=== PATIENT | male | born 1980 | race Caucasian/White ===

== ENCOUNTER 2019-05-28 20:19 | Emergency (ER) | payer OTHER ==
[2019-05-28 20:24] VITALS: BP 143/96; PULSE 82; RESP 18; TEMP 98.9
[2019-05-28] MEDS ORDERED: SODIUM CHLORIDE 0.9% 1,000 ML IV STA (20:26)
[2019-05-28] MEDS ORDERED: ONDANSETRON 4 MG/2 ML VIAL IVP STA (20:26)
--- NOTE | 2019-05-28 20:28 | ED ---
Abdominal Pain HPI - General Chief Complaint: Abdominal Pain Stated Complaint: Abd pain Time Seen by Provider: 05/28/19 20:26 Source: patient, RN notes reviewed, old records reviewed Mode of arrival: ambulatory Limitations: no limitations - History of Present Illness Initial Comments: This is a 39-year-old male the ER for evaluation. Patient resents today for evaluation regarding abdominal pain. Right upper quadrant bowel pain worse after eating. No history of similar, no surgical history. Patient denies again any trauma mild nausea no vomiting no diarrhea. Again no fever MD Complaint: abdominal pain -: hour(s) Location: RUQ Radiation: RUQ Migration to: RUQ Severity: mild Severity scale (1-10): 2 Quality: aching Improves With: nothing Worsens With: eating Associated Symptoms: nausea - Related Data Allergies Allergy/AdvReac Type Severity Reaction Status Date / Time ibuprofen Allergy Unknown Verified 05/28/19 20:24 ketorolac [From Toradol] Allergy Unknown Verified 05/28/19 20:24 Penicillins Allergy Unknown Verified 05/28/19 20:24 Review of Systems ROS Statement: Those systems with pertinent positive or pertinent negative responses have been documented in the HPI. ROS Other: All systems not noted in ROS Statement are negative. Past Medical History Past Medical History: No Reported History History of Any Multi-Drug Resistant Organisms: None Reported Past Surgical History: Hernia Repair Past Psychological History: Bipolar, Schizophrenia Smoking Status: Current every day smoker Past Alcohol Use History: None Reported Past Drug Use History: Cocaine, Heroin, Marijuana, Methamphetamine General Exam - General Exam Comments Initial Comments: RUQ tenderness negative Mensah's Limitations: no limitations General appearance: alert, in no apparent distress Head exam: Present: atraumatic, normocephalic, normal inspection Eye exam: Present: normal appearance, PERRL, EOMI. Absent: scleral icterus, conjunctival injection, periorbital swelling ENT exam: Present: normal exam, mucous membranes moist Neck exam: Present: normal inspection. Absent: tenderness, meningismus, lymphadenopathy Respiratory exam: Present: normal lung sounds bilaterally. Absent: respiratory distress, wheezes, rales, rhonchi, stridor Cardiovascular Exam: Present: regular rate, normal rhythm, normal heart sounds. Absent: systolic murmur, diastolic murmur, rubs, gallop, clicks GI/Abdominal exam: Present: soft, normal bowel sounds. Absent: distended, tenderness, guarding, rebound, rigid Extremities exam: Present: normal inspection, full ROM, normal capillary refill. Absent: tenderness, pedal edema, joint swelling, calf tenderness Back exam: Present: normal inspection Neurological exam: Present: alert, oriented X3, CN II-XII intact Psychiatric exam: Present: normal affect, normal mood Skin exam: Present: warm, dry, intact, normal color. Absent: rash Course Vital Signs 05/28/19 20:22 Temperature 98.9 F Pulse Rate 82 Respiratory 18 Rate Blood Pressure 143/96 O2 Sat by Pulse 98 Oximetry - Reevaluation(s) Reevaluation #1: 05/28/19 21:51 Medical record is reviewed Reevaluation #2: 05/28/19 21:51 Pain control Medical Decision Making - Medical Decision Making 39 male the ER for evaluation right upper quadrant abdominal pain ultrasound negative labwork is normal. Patient can be discharged home - Lab Data Result diagrams: 05/28/19 20:48 05/28/19 20:48 Lab Results 05/28/19 05/28/19 05/28/19 Range/Units 20:48 20:48 20:48 WBC 5.2 (3.8-10.6) k/uL RBC 4.45 (4.30-5.90) m/uL Hgb 13.6 (13.0-17.5) gm/dL Hct 40.1 (39.0-53.0) % MCV 90.2 (80.0-100.0) fL MCH 30.5 (25.0-35.0) pg MCHC 33.8 (31.0-37.0) g/dL RDW 12.8 (11.5-15.5) % Plt Count 205 (150-450) k/uL Neutrophils % 57 % Lymphocytes % 28 % Monocytes % 6 % Eosinophils % 6 % Basophils % 1 % Neutrophils # 3.0 (1.3-7.7) k/uL Lymphocytes # 1.5 (1.0-4.8) k/uL Monocytes # 0.3 (0-1.0) k/uL Eosinophils # 0.3 (0-0.7) k/uL Basophils # 0.0 (0-0.2) k/uL PT (9.0-12.0) sec INR (<1.2) APTT (22.0-30.0) sec Sodium 137 (137-145) mmol/L Potassium 4.5 (3.5-5.1) mmol/L Chloride 102 (98-107) mmol/L Carbon Dioxide 28 (22-30) mmol/L Anion Gap 7 mmol/L BUN 18 (9-20) mg/dL Creatinine 0.84 (0.66-1.25) mg/dL Est GFR (CKD-EPI)AfAm >90 (>60 ml/min/1.73 sqM) Est GFR (CKD-EPI)NonAf >90 (>60 ml/min/1.73 sqM) Glucose 101 H (74-99) mg/dL Plasma Lactic Acid Hong 1.1 (0.7-2.0) mmol/L Calcium 9.2 (8.4-10.2) mg/dL Total Bilirubin 0.3 (0.2-1.3) mg/dL AST 61 H (17-59) U/L ALT 63 (21-72) U/L Alkaline Phosphatase 76 (38-126) U/L Creatine Kinase 211 H (55-170) U/L Total Protein 6.4 (6.3-8.2) g/dL Albumin 3.9 (3.5-5.0) g/dL Amylase 48 (30-110) U/L Lipase 81 (23-300) U/L 05/28/19 Range/Units 20:48 WBC (3.8-10.6) k/uL RBC (4.30-5.90) m/uL Hgb (13.0-17.5) gm/dL Hct (39.0-53.0) % MCV (80.0-100.0) fL MCH (25.0-35.0) pg MCHC (31.0-37.0) g/dL RDW (11.5-15.5) % Plt Count (150-450) k/uL Neutrophils % % Lymphocytes % % Monocytes % % Eosinophils % % Basophils % % Neutrophils # (1.3-7.7) k/uL Lymphocytes # (1.0-4.8) k/uL Monocytes # (0-1.0) k/uL Eosinophils # (0-0.7) k/uL Basophils # (0-0.2) k/uL PT 9.6 (9.0-12.0) sec INR 0.9 (<1.2) APTT 23.3 (22.0-30.0) sec Sodium (137-145) mmol/L Potassium (3.5-5.1) mmol/L Chloride (98-107) mmol/L Carbon Dioxide (22-30) mmol/L Anion Gap mmol/L BUN (9-20) mg/dL Creatinine (0.66-1.25) mg/dL Est GFR (CKD-EPI)AfAm (>60 ml/min/1.73 sqM) Est GFR (CKD-EPI)NonAf (>60 ml/min/1.73 sqM) Glucose (74-99) mg/dL Plasma Lactic Acid Hong (0.7-2.0) mmol/L Calcium (8.4-10.2) mg/dL Total Bilirubin (0.2-1.3) mg/dL AST (17-59) U/L ALT (21-72) U/L Alkaline Phosphatase (38-126) U/L Creatine Kinase (55-170) U/L Total Protein (6.3-8.2) g/dL Albumin (3.5-5.0) g/dL Amylase (30-110) U/L Lipase (23-300) U/L - Radiology Data Radiology results: report reviewed (Ultrasound right upper quadrant negative for gallbladder disease), image reviewed Disposition Clinical Impression: Abdominal pain Disposition: HOME SELF-CARE Condition: Good Instructions (If sedation given, give patient instructions): Abdominal Pain (ED) Is patient prescribed a controlled substance at d/c from ED?: No Referrals: Nonstaff,Physician [Primary Care Provider] - 1-2 days
[2019-05-28 20:58] LABS: Basophils % (A) 1 %; Eosinophils # (A) 0.3 k/uL (0-0.7); Eosinophils % (A) 6 %; HCT 40.1 % (39.0-53.0); HGB 13.6 gm/dL (13.0-17.5); Lymphocytes # (A) 1.5 k/uL (1.0-4.8); Lymphocytes % (A) 28 %; MCH 30.5 pg (25.0-35.0); MCHC 33.8 g/dL (31.0-37.0); MCV 90.2 fL (80.0-100.0); Mean Platelet Volume 6.6; Monocytes # (A) 0.3 k/uL (0-1.0); Monocytes % (A) 6 %; Neutrophils % (A) 57 %; Platelet Count 205 k/uL (150-450); RBC 4.45 m/uL (4.30-5.90); RDW 12.8 % (11.5-15.5); WBC 5.2 k/uL (3.8-10.6)
[2019-05-28 21:07] LABS: ALT 63 U/L (21-72); AST 61 U/L (17-59); African American GFR (CKD) >90 (>60 ml/min/1.73 sqM); Albumin 3.9 g/dL (3.5-5.0); Alkaline Phosphatase 76 U/L (38-126); Amylase 48 U/L (30-110); Anion Gap 7 mmol/L; Blood Urea Nitrogen 18 mg/dL (9-20); Calcium 9.2 mg/dL (8.4-10.2); Carbon Dioxide 28 mmol/L (22-30); Chloride 102 mmol/L (98-107); Creatine Kinase 211 U/L (55-170); Glucose 101 mg/dL (74-99); INR 0.9 (<1.2); Lipase 81 U/L (23-300); Partial Thromboplastin Time 23.3 sec (22.0-30.0); Potassium 4.5 mmol/L (3.5-5.1); Prothrombin Time 9.6 sec (9.0-12.0); Sodium 137 mmol/L (137-145); Total Bilirubin 0.3 mg/dL (0.2-1.3); Total Protein 6.4 g/dL (6.3-8.2)
--- NOTE | 2019-05-28 21:37 | US ---
EXAMINATION TYPE: US gallbladder DATE OF EXAM: 05/28/2019 COMPARISON: NONE CLINICAL HISTORY: Pain. Pt states RUQ pain, pt is not NPO EXAM MEASUREMENTS: Liver Length: 15.1 cm Gallbladder Wall: 0.4 cm CBD: 0.5 cm Right Kidney: 10.8 x 4.3 x 4.9 cm Pt very gassy, not NPO, somewhat limited exam Pancreas: Obscured by bowel gas Liver: Visualized portions appeared wnl Gallbladder: Appeared contracted, wall thickened, pt not NPO Evidence for sonographic Mensah's sign: Yes CBD: wnl Right Kidney: wnl, lower pole gassed out IMPRESSION: Negative exam. Contracted gallbladder. No dilated ducts.
[2019-05-28] MEDS ORDERED: PANTOPRAZOLE 40 MG/10 ML VIAL IVP STA (21:49)
[2019-05-28] MEDS ORDERED: MAG HYDROX/AL HYDROX/SIMETH 30 ML, HYOSCYAMINE ELIXIR 10 ML, CIMETIDINE HCL 300 MG PO STA ×3 (21:49)
== END 2019-05-28 22:12 | disposition home or self-care (01) ==
LOC: EC 20:19
DX: R10.11 Right upper quadrant pain (principal); R11.0 Nausea; F17.200 Nicotine dependence, unspecified, uncomplicated; Z88.0 Allergy status to penicillin; Z88.6 Allergy status to analgesic agent
CPT/HCPCS: 36415; 80053; 82150; 82550; 83605; 83690; 85025; 85610; 85730; 76705; 99284; 96374; 96375; 96361; J2405; C9113

== ENCOUNTER 2019-06-05 19:44 | Observation (INO) | payer MEDICARE, OTHER ==
--- NOTE | 2019-06-05 20:40 | ED ---
Chest Pain HPI - General Chief Complaint: Chest Pain Stated Complaint: Chest Pain Time Seen by Provider: 06/05/19 20:19 Source: patient Mode of arrival: ambulatory Limitations: no limitations - History of Present Illness Initial Comments: The patient is a 39-year-old male who presents to the emergency department with reported chest pain. Patient symptoms have been going on for the past 2 days. Reports that he will have episodes of sharp shooting chest pain is located substernally without radiation. Pain will last for approximately 10 seconds and then spontaneously resolve. He has not been taking any medications for his symptoms. States that today he had such severe pain that he ended up having a syncopal episode. Reports that he was standing when the incident happened. He is unsure if he hit his head. It was reported the patient was only unconscious for 20 seconds. There is no post ictal phase or she like activity. There is no bowel or bladder incontinence patient did not bite his tongue. EMS was called. The incident happened at [place] were the patient is residing for alcohol abuse. He has been there for approximately 3 weeks. The last he used alcohol was 3 weeks ago. Does report a history of cocaine use, last of which was 2-3 months ago. He also reports methamphetamine and heroin use last was greater than 6 months ago. The patient does have a history of PE 5 years ago. Reports that he was on several to for 6 months and then taken off by his physician. The patient has noted bilateral lower extremity edema. Denies any calf pain or swelling. No history of blood clotting disorders. Denies recent surgeries or hemoptysis. No previous history of cardiac disease. States he has never had a full cardiac workup. No cough, fevers or chills. Denies nausea vomiting or diaphoresis. Denies any headache, neck pain, visual changes, back pain or pain in his extremities secondary to syncopal episode. There are no other alleviating, precipitating or modifying factors - Related Data Home Medications Medication Instructions Recorded Confirmed Acetaminophen [Tylenol] 650 mg PO Q4H PRN 06/05/19 06/05/19 Citalopram Hydrobromide [CeleXA] 20 mg PO DAILY 06/05/19 06/05/19 Docusate [Colace] 100 mg PO BID 06/05/19 06/05/19 Mirtazapine [Remeron] 15 mg PO HS 06/05/19 06/05/19 Multivitamins, Thera [Multivitamin 1 tab PO DAILY 06/05/19 06/05/19 (formulary)] QUEtiapine FUMARATE [SEROquel] 300 mg PO HS 06/05/19 06/05/19 busPIRone HCl [Buspar] 10 mg PO BID 06/05/19 06/05/19 cloNIDine HCL [Catapres] 0.1 - 0.3 mg PO DAILY PRN 06/05/19 06/05/19 Allergies Allergy/AdvReac Type Severity Reaction Status Date / Time aspirin Allergy Intermediate Itching Verified 06/05/19 21:02 ibuprofen Allergy Unknown Verified 06/05/19 20:50 ketorolac [From Toradol] Allergy Unknown Verified 06/05/19 20:50 Penicillins Allergy Unknown Verified 06/05/19 20:50 Review of Systems ROS Statement: Those systems with pertinent positive or pertinent negative responses have been documented in the HPI. ROS Other: All systems not noted in ROS Statement are negative. EKG Findings - EKG Comments: EKG Findings:: EKG demonstrates a normal sinus rhythm with a ventricular rate of 73. NJ interval 150. QRS 94. QTc 471. There are no acute ST segment elevations or depressions concerning for ischemic changes. Past Medical History Past Medical History: No Reported History History of Any Multi-Drug Resistant Organisms: None Reported Past Surgical History: Hernia Repair Past Psychological History: Bipolar, Schizophrenia Smoking Status: Current every day smoker Past Alcohol Use History: None Reported Past Drug Use History: Cocaine, Heroin, Marijuana, Methamphetamine - Past Family History Mother Family Medical History: Diabetes Mellitus, Myocardial Infarction ([place]) Additional Family Medical History / Comment(s): at age of 66 Father History Unknown: Yes General Exam Limitations: no limitations General appearance: alert, in no apparent distress Head exam: Present: atraumatic, normocephalic, normal inspection Eye exam: Present: normal appearance, PERRL, EOMI. Absent: scleral icterus, conjunctival injection, periorbital swelling ENT exam: Present: normal exam, mucous membranes moist Neck exam: Present: normal inspection. Absent: tenderness, meningismus, lymphadenopathy Respiratory exam: Present: normal lung sounds bilaterally. Absent: respiratory distress, wheezes, rales, rhonchi, stridor Cardiovascular Exam: Present: regular rate, normal rhythm, normal heart sounds. Absent: systolic murmur, diastolic murmur, rubs, gallop, clicks GI/Abdominal exam: Present: soft, normal bowel sounds. Absent: distended, tenderness, guarding, rebound, rigid Extremities exam: Present: normal inspection, full ROM, normal capillary refill. Absent: tenderness, pedal edema, joint swelling, calf tenderness Back exam: Present: normal inspection Neurological exam: Present: alert, oriented X3, CN II-XII intact Psychiatric exam: Present: normal affect, normal mood Skin exam: Present: warm, dry, intact, normal color. Absent: rash Course Vital Signs 06/05/19 06/05/19 06/05/19 19:50 20:29 21:21 Temperature 98.5 F Pulse Rate 98 69 75 Pulse Rate [ Right] Respiratory 16 18 18 Rate Blood Pressure 133/76 130/45 124/83 Blood Pressure [Right Arm] O2 Sat by Pulse 95 99 96 Oximetry 06/05/19 06/06/19 23:28 00:00 Temperature 97.8 F 98.5 F Pulse Rate 62 Pulse Rate [ 74 Right] Respiratory 16 15 Rate Blood Pressure 151/95 Blood Pressure 108/74 [Right Arm] O2 Sat by Pulse 98 97 Oximetry Chest Pain MDM - MDM The patient was seen by myself. Upon arrival he is placed into room 4. He sick to continuous pulse ox and cardiac monitoring. A 12-lead EKG is performed and the patient which demonstrates no acute findings. I did recommend laboratory studies, bilateral lower extremity Dopplers due to swelling and a CT a of his chest due to his history of PE. The patient agreed to this. He is currently symptom-free at this time. Upon return results are discussed with the patient. I did recommend hospital admission due to his syncopal episode as well as recurrent chest pain. Patient did agree to this. He was admitted to Dr. Laws. I did order an echo place patient on telemetry monitoring. The patient remained in stable condition without any episodes of chest pain while within the emergency department and was transported to the floor. Disposition Clinical Impression: Acute chest pain, Syncope Disposition: ADMITTED IP TO THIS [facility] Condition: Stable Is patient prescribed a controlled substance at d/c from ED?: No Decision to Admit Reason: Admit from EC Decision Date: 06/05/19 Decision Time: 22:51
[2019-06-05] MEDS ORDERED: ASPIRIN 81 MG PO STA (20:48)
[2019-06-05 21:07] LABS: Basophils % (A) 1 %; Eosinophils # (A) 0.2 k/uL (0-0.7); Eosinophils % (A) 5 %; HCT 37.4 % (39.0-53.0); Lymphocytes # (A) 1.3 k/uL (1.0-4.8); Lymphocytes % (A) 28 %; MCH 30.4 pg (25.0-35.0); MCHC 34.8 g/dL (31.0-37.0); MCV 87.4 fL (80.0-100.0); Mean Platelet Volume 7.2; Monocytes # (A) 0.3 k/uL (0-1.0); Monocytes % (A) 6 %; Neutrophils # (A) 2.6 k/uL (1.3-7.7); Neutrophils % (A) 56 %; Platelet Count 222 k/uL (150-450); RBC 4.28 m/uL (4.30-5.90); RDW 13.1 % (11.5-15.5); WBC 4.7 k/uL (3.8-10.6)
[2019-06-05 21:10] LABS: ALT 36 U/L (21-72); AST 39 U/L (17-59); African American GFR (CKD) >90 (>60 ml/min/1.73 sqM); Albumin 3.7 g/dL (3.5-5.0); Alkaline Phosphatase 66 U/L (38-126); Anion Gap 5 mmol/L; Blood Urea Nitrogen 18 mg/dL (9-20); Carbon Dioxide 30 mmol/L (22-30); Chloride 103 mmol/L (98-107); Glucose 87 mg/dL (74-99); Magnesium 1.9 mg/dL (1.6-2.3); Potassium 4.5 mmol/L (3.5-5.1); Sodium 138 mmol/L (137-145); Total Bilirubin 0.4 mg/dL (0.2-1.3); Total Protein 6.2 g/dL (6.3-8.2)
[2019-06-05 21:18] LABS: D-Dimer 0.35 mg/L FEU (<0.60); INR 0.9 (<1.2); Prothrombin Time 9.9 sec (9.0-12.0)
[2019-06-05] MEDS: RX INFO: IV CONTRAST WAS GIVEN 1 EACH MISC MISCELLANE PRN ×2 (21:20→21:21)
--- NOTE | 2019-06-05 21:35 | CT ---
EXAMINATION TYPE: CT chest angio for PE DATE OF EXAM: 06/05/2019 COMPARISON: None HISTORY: sob CT DLP: 410 mGycm Automated exposure control for dose reduction was used. CONTRAST: CT Chest for pulmonary embolism performed with with IV Contrast, patient injected with 80 mL of Isovu e 370. FINDINGS: There are 3-D post processed images. There is minimal pleural thickening in the posterior lung cruz. There is minimal atelectasis at the posterior lung bases. There is no pleural effusion. There is no evidence of a pulmonary mass. There is no pericardial effusion. There are a few anterior mediastinal lymph nodes that measure less than 1 cm. There are a few bronchial lymph nodes that measure up to 1 cm. There is no mediastinal adenopathy. There are no hilar masses. There is normal contrast opacification of the pulmonary arteries. There is some spurring in the thoracic spine. I see no bony destructive p rocess. IMPRESSION: No evidence of pulmonary embolism. Minimal pleural thickening at the posterior lung bases. Nonspecifi c mediastinal and bronchial lymph nodes.
--- NOTE | 2019-06-05 22:34 | US ---
EXAM: US Duplex Bilateral Lower Extremity Veins CLINICAL HISTORY: ITS.REASON US Reason: Pain TECHNIQUE: Real-time duplex ultrasound scan of the bilateral lower extremity veins integrating B-mode two-dimensional vascular structure, Doppler spectral analysis, color flow Doppler imaging and compression. COMPARISON: None FINDINGS: Right deep veins: Unremarkable. No DVT in the right common femoral, femoral, proximal deep femoral or popliteal veins. The veins demonstrate normal color flow, are normally compressible, with normal phasic flow and/or augmentation response. Right superficial veins: Unremarkable. No thrombus in the visualized right great saphenous vein. Left deep veins: Unremarkable. No DVT in the left common femoral, femoral, proximal deep femoral or popliteal veins. The veins demonstrate normal color flow, are normally compressible, with normal phasic flow and/or augmentation response. Left superficial veins: Unremarkable. No thrombus in the visualized left great saphenous vein. Soft tissues: No acute findings. No popliteal cyst. Lymph nodes: Nonspecific mildly prominent left inguinal lymph nodes. IMPRESSION: No deep venous thrombosis identified in either lower extremity.
[2019-06-05] MEDS ORDERED: NALOXONE 0.4 MG/ML 1 ML VIAL IV PRN (22:52)
[2019-06-05] MEDS ORDERED: ACETAMINOPHEN TAB 325 MG TAB PO PRN (23:03)
[2019-06-06 00:49] VITALS: BMI 31.5
[2019-06-06 06:56] VITALS: BP 106/66; PULSE 64; RESP 18; TEMP 97.6
[2019-06-06 08:23] LABS: Cholesterol 221 mg/dL (<200); HDL Cholesterol 42 mg/dL (40-60); LDL Cholesterol,Calculated 119 mg/dL (0-99); Triglycerides 298 mg/dL (<150)
[2019-06-06] MEDS ORDERED: busPIRone HCl 10 MG TAB PO SCH (09:00)
[2019-06-06] MEDS ORDERED: DOCUSATE 100 MG CAP PO SCH (09:00)
[2019-06-06] MEDS ORDERED: CITALOPRAM HYDROBROMIDE 20 MG TAB PO SCH (09:00)
--- NOTE | 2019-06-06 10:05 | P.CRDCN ---
History of Present Illness History of present illness: This is a pleasant 39-year-old male past medical history significant for cocaine, methamphetamine and heroin use currently attending drug rehabilitation. He also has a history of bipolar, schizophrenia, alcohol use and chronic nicotine dependence. 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 We have asked to see him in consultation secondary to chest discomfort. He states for the previous 3-4 days intermittently he has felt a heavy pressure sensation in the midsternal region. It comes on it last for about a minute and subsides on its own. There is no radiation to the arm, back, neck or jaw. It is associated with mild shortness of breath and diaphoresis. No specific aggravating or alleviating factors. However he does state he feels that he's been under a significant amount of stress and anxiety since being in rehab and attempt, drugs. EKG reveals sinus mechanism with no acute ST or T wave abnormalities noted. CTA chest negative for pulmonary embolism. Bilateral lower extremity duplex negative for DVT bilaterally. Laboratory data reviewed, WBC 4.7, hemoglobin 13, platelets 222, d-dimer 0.35, sodium 138, potassium 4.5, creatinine 0.79, magnesium 1.9, cardiac enzymes negative 3, NT proBNP 101, LDL 119. He currently takes no daily cardiac medications. At the time of my exam: CONSTITUTIONAL: Denies fever. Denies chills. EYES: Denies blurred vision. Denies vision changes. Denies eye pain. EARS, NOSE, MOUTH & THROAT: Denies headache. Denies sore throat. Denies ear pain. CARDIOVASCULAR: Denies chest pain. Denies shortness of breath. Denies orthopnea. Denies PND. Denies palpitations. RESPIRATORY: Denies cough. GASTROINTESTINAL: Denies abdominal pain. Denies diarrhea. Denies constipation. Denies nausea. Denies vomiting. MUSCULOSKELETAL: Denies myalgias. INTEGUMENTARY: Denies pruitis. Denies rash. NEUROLOGIC: Denies numbness. Denies tingling. Denies weakness. PSYCHIATRIC: Complains of claustrophobia and anxiety. Denies depression. ENDOCRINE: Denies fatigue. Denies weight change. Denies polydipsia. Denies polyurina. GENITOURINARY: Denies burning, hematuria or urgency with micturation. HEMATOLOGIC: Denies history of anemia. Denies bleeding. Blood pressure 106/66 heart rate 64 afebrile maintaining oxygen saturation on room air GENERAL: This is a 39-year-old male in no apparent distress at the time of my examination. HEENT: Head is atraumatic, normocephalic. Pupils are equal, round. Sclerae anicteric. Conjunctivae are clear. Mucous membranes of the mouth are moist. Neck is supple. There is no jugular venous distention. No carotid bruit is heard. LUNGS: Clear to auscultation no wheezes, rales or rhonchi. No chest wall tenderness is noted on palpation or with deep breathing. HEART: Regular rate and rhythm without murmurs, rubs or gallops. S1 and S2 heard. ABDOMEN: Soft, nontender. Bowel sounds are heard. No organomegaly noted. EXTREMITIES: Bilateral lower extremity mild less than 1 pitting edema. No calf tenderness noted. VASCULAR: Radial and dorsalis pedis pulses palpated, no evidence of clubbing. NEUROLOGIC: Patient is awake, alert and oriented x3. ASSESSMENT Chest pain, atypical for angina. An acute coronary event has been ruled out. History of drug and alcohol abuse, has been clean and sober for 3 weeks currently attending substance abuse rehabilitation at [place]. Chronic nicotine dependence History of bipolar and schizophrenia PLAN An acute coronary event has been ruled out with no EKG evidence of ischemia and negative cardiac enzymes. Obtain 2-D echocardiogram and Doppler study to assess cardiac structure and function. Advised patient to undergo stress testing however he states he would like to do this when he is done with his rehab program. We have advised him to follow-up with his primary care physician upon discharge from rehab. Should he develop any further symptoms of chest discomfort has been advised to return to the hospital for stress testing. Thank you kindly for this consultation. Nurse Practitioner note has been reviewed, I agree with a documented findings and plan of care. Patient was seen and examined. Past Medical History Past Medical History: No Reported History Additional Past Medical History / Comment(s): pancreatitis History of Any Multi-Drug Resistant Organisms: None Reported Past Surgical History: Hernia Repair Past Anesthesia/Blood Transfusion Reactions: No Reported Reaction Past Psychological History: Bipolar, Schizophrenia Smoking Status: Current every day smoker Past Alcohol Use History: None Reported Past Drug Use History: Cocaine, Heroin, Marijuana, Methamphetamine - Past Family History Mother Family Medical History: Diabetes Mellitus, Myocardial Infarction ([place]) Additional Family Medical History / Comment(s): at age of 66 Father History Unknown: Yes Medications and Allergies Home Medications Medication Instructions Recorded Confirmed Type Acetaminophen [Tylenol] 650 mg PO Q4H PRN 06/05/19 06/05/19 History Citalopram Hydrobromide [CeleXA] 20 mg PO DAILY 06/05/19 06/05/19 History Docusate [Colace] 100 mg PO BID 06/05/19 06/05/19 History Mirtazapine [Remeron] 15 mg PO HS 06/05/19 06/05/19 History Multivitamins, Thera [Multivitamin 1 tab PO DAILY 06/05/19 06/05/19 History (formulary)] QUEtiapine FUMARATE [SEROquel] 300 mg PO HS 06/05/19 06/05/19 History busPIRone HCl [Buspar] 10 mg PO BID 06/05/19 06/05/19 History cloNIDine HCL [Catapres] 0.1 - 0.3 mg PO DAILY PRN 06/05/19 06/05/19 History Methadone [Dolophine] 130 mg PO DAILY 06/06/19 06/06/19 History Allergies Allergy/AdvReac Type Severity Reaction Status Date / Time aspirin Allergy Intermediate Itching Verified 06/05/19 21:02 ibuprofen Allergy Unknown Verified 06/05/19 20:50 ketorolac [From Toradol] Allergy Unknown Verified 06/05/19 20:50 Penicillins Allergy Unknown Verified 06/05/19 20:50 Physical Exam Vitals: Vital Signs Temp Pulse Pulse Resp BP BP Pulse Ox 06/06/19 06:55 97.6 F 64 18 106/66 97 06/06/19 04:00 98.0 F 62 16 110/70 97 06/06/19 00:50 98.0 F 66 16 108/70 96 06/06/19 00:00 98.5 F 74 15 108/74 97 06/05/19 23:28 97.8 F 62 16 151/95 98 06/05/19 21:21 75 18 124/83 96 06/05/19 20:29 69 18 130/45 99 06/05/19 19:50 98.5 F 98 16 133/76 95 Intake and Output 07/06/06/19 06/06/19 22:59 06:59 14:59 Other: Voiding Method Toilet # Voids 1 Weight 102.512 kg Results 06/05/19 20:28 06/05/19 20:28 Cardiac Enzymes 06/05/19 06/05/19 06/06/19 Range/Units 20:28 20:28 02:10 AST 39 (17-59) U/L Troponin I <0.012 <0.012 (0.000-0.034) ng/mL Coagulation 06/05/19 Range/Units 20:28 PT 9.9 (9.0-12.0) sec APTT 24.0 (22.0-30.0) sec CBC 06/05/19 Range/Units 20:28 WBC 4.7 (3.8-10.6) k/uL RBC 4.28 L (4.30-5.90) m/uL Hgb 13.0 (13.0-17.5) gm/dL Hct 37.4 L (39.0-53.0) % Plt Count 222 (150-450) k/uL Comprehensive Metabolic Panel 06/05/19 Range/Units 20:28 Sodium 138 (137-145) mmol/L Potassium 4.5 (3.5-5.1) mmol/L Chloride 103 (98-107) mmol/L Carbon Dioxide 30 (22-30) mmol/L BUN 18 (9-20) mg/dL Creatinine 0.79 (0.66-1.25) mg/dL Glucose 87 (74-99) mg/dL Calcium 9.0 (8.4-10.2) mg/dL AST 39 (17-59) U/L ALT 36 (21-72) U/L Alkaline Phosphatase 66 (38-126) U/L Total Protein 6.2 L (6.3-8.2) g/dL Albumin 3.7 (3.5-5.0) g/dL Current Medications Generic Name Dose Route Start Last Admin Trade Name Freq PRN Reason Stop Dose Admin Acetaminophen 650 mg 06/05/19 23:03 Tylenol Tab PO Q4H PRN Pain Buspirone HCl 10 mg 06/06/19 09:00 Buspar PO BID [facility] Citalopram Hydrobromide 20 mg 06/06/19 09:00 Celexa PO DAILY GIULIANO Docusate Sodium 100 mg 06/06/19 09:00 Colace PO BID GIULIANO Mirtazapine 15 mg 06/06/19 21:00 Remeron PO HS GIULIANO Miscellaneous Information 1 each 06/05/19 20:48 06/05/19 21:21 Rx Info: Iv Contrast Was Given MISCELLANE 06/07/19 20:48 1 each DAILY PRN Administration Per Protocol Naloxone HCl 0.2 mg 06/05/19 22:52 Narcan IV Q2M PRN Opioid Reversal Quetiapine Fumarate 300 mg 06/06/19 21:00 Seroquel PO HS [facility] Intake and Output 06/05/19 06/06/19 06/06/19 22:59 06:59 14:59 Other: Voiding Method Toilet # Voids 1 Weight 102.512 kg 06/05/19 20:28 06/05/19 20:28
[2019-06-06] MEDS ORDERED: METHADONE 10 MG TAB PO SCH (10:30)
--- NOTE | 2019-06-06 10:35 | P.HPIM ---
History of Present Illness Chief Complaint: Chest pain This is a, and history and physical and discharge summary for this patient Very pleasant 39-year-old gentleman with a past medical history significant for cocaine, heroine and amphetamine use currently attending [facility] and gets methadone 1:30 milligrams from [facility] comes in with complaints of chest pain. Patient says that for the past 3-4 days he's been having intermittent heaviness and pressure in the chest and the midsternal area that comes and goes on its own. He does not complain of any radiation of the pain, he does not complain of any abdominal pain or any nausea vomiting or diarrhe. He says that he is constipated because of he is on methadone. He said that he had associated shortness of breath and diaphoresis. Patient does not complain of any lightheadedness or dizziness, no headache, no loss of vision or blurry vision, no tingling numbness on his extremities, and no itch no rash. ER course-patient had EKG done which showed sinus rhythm and no ST-T wave changes, CT of the chest was negative for PE, bilateral lower extremity ultrasound was negative for any DVT. Labwork was initial WBC 4.7 hemoglobin 13 platelets 222 sodium 1:30 potassium 4.5 creatinine 0.79 cardiac enzymes were negative proBNP was 101. Patient was thus admitted to the hospitalist service a further admission and management with cardiology consult Review of Systems All systems: negative Past Medical History Past Medical History: No Reported History Additional Past Medical History / Comment(s): pancreatitis History of Any Multi-Drug Resistant Organisms: None Reported Past Surgical History: Hernia Repair Past Anesthesia/Blood Transfusion Reactions: No Reported Reaction Past Psychological History: Bipolar, Schizophrenia Smoking Status: Current every day smoker Past Alcohol Use History: None Reported Past Drug Use History: Cocaine, Heroin, Marijuana, Methamphetamine - Past Family History Mother Family Medical History: Diabetes Mellitus, Myocardial Infarction ([place]) Additional Family Medical History / Comment(s): at age of 66 Father History Unknown: Yes Medications and Allergies Home Medications Medication Instructions Recorded Confirmed Type Acetaminophen [Tylenol] 650 mg PO Q4H PRN 06/05/19 06/05/19 History Citalopram Hydrobromide [CeleXA] 20 mg PO DAILY 06/05/19 06/05/19 History Docusate [Colace] 100 mg PO BID 06/05/19 06/05/19 History Mirtazapine [Remeron] 15 mg PO HS 06/05/19 06/05/19 History Multivitamins, Thera [Multivitamin 1 tab PO DAILY 06/05/19 06/05/19 History (formulary)] QUEtiapine FUMARATE [SEROquel] 300 mg PO HS 06/05/19 06/05/19 History busPIRone HCl [Buspar] 10 mg PO BID 06/05/19 06/05/19 History cloNIDine HCL [Catapres] 0.1 - 0.3 mg PO DAILY PRN 06/05/19 06/05/19 History Methadone [Dolophine] 130 mg PO DAILY 06/06/19 06/06/19 History Allergies Allergy/AdvReac Type Severity Reaction Status Date / Time aspirin Allergy Intermediate Itching Verified 06/05/19 21:02 ibuprofen Allergy Unknown Verified 06/05/19 20:50 ketorolac [From Toradol] Allergy Unknown Verified 06/05/19 20:50 Penicillins Allergy Unknown Verified 06/05/19 20:50 Physical Exam Vitals: Vital Signs Temp Pulse Pulse Resp BP BP Pulse Ox 06/06/19 08:00 18 06/06/19 06:55 97.6 F 64 18 106/66 97 06/06/19 04:00 98.0 F 62 16 110/70 97 06/06/19 00:50 98.0 F 66 16 108/70 96 06/06/19 00:00 98.5 F 74 15 108/74 97 06/05/19 23:28 97.8 F 62 16 151/95 98 06/05/19 21:21 75 18 124/83 96 06/05/19 20:29 69 18 130/45 99 06/05/19 19:50 98.5 F 98 16 133/76 95 Intake and Output 06/05/19 06/06/19 06/06/19 22:59 06:59 14:59 Other: Voiding Method Toilet Toilet # Voids 1 Weight 102.512 kg On exam, alert and oriented x3. HEENT: Conjunctivae normal. eyes normal. Patient has caries in the teeth NECK: No JVD. No thyroid enlargement. No LNs CARDIOVASCULAR: S1, S2 heard RESPIRATION: Breath sounds diminished in the bases. No rhonchi or crackles. No bronchial breathing. ABDOMEN: Soft, nontender . No guarding. no masses palpable. No ascites, No hepatosplenomegaly.Bowel sounds heard. LEGS: No edema. no swelling NERVOUS SYSTEM: Cranial N 2-12 grossly normal. Moves all 4 limbs. No focal deficits. No sensory deficit. No signs of cerebellar dysfucntion. Skin: no ulcer no rash Joints: No active swelling. No inflammation. Lymphatic system. No LN neck axilla or groin. Results CBC & Chem 7: 06/05/19 20:28 06/05/19 20:28 Labs: Abnormal Lab Results - Last 24 Hours (Table) 06/05/19 06/05/19 06/06/19 Range/Units 20:28 20:28 07:53 RBC 4.28 L (4.30-5.90) m/uL Hct 37.4 L (39.0-53.0) % Total Protein 6.2 L (6.3-8.2) g/dL Triglycerides 298 H (<150) mg/dL Cholesterol 221 H (<200) mg/dL LDL Cholesterol, Calc 119 H (0-99) mg/dL Thrombosis Risk Factor Assmnt - Choose All That Apply Any of the Below Risk Factors Present?: Yes Each Factor Represents 1 point: Swollen legs (current) Other Risk Factors: Yes Each Risk Factor Represents 3 Points: History of DVT/PE Thrombosis Risk Factor Assessment Total Risk Factor Score: 4 Thrombosis Risk Factor Assessment Level: Moderate Risk Assessment and Plan Assessment: - Chest pain, acute coronary event has been ruled out - History of polysubstance abuse attending [facility] program - Methadone use from [facility] - History of bipolar disorder - History of schizophrenia Plan - Patient was admitted to observation - Cardiology following the patient order for 2-D echo. Patient refuses a stress test said that he would like to do it when he is done with the rehab program - Patient advised to follow with the primary care physician upon discharge from the rehab so that they can do for him to cardiology and he can have the stress test done. In the meanwhile he was told to come back to the ER if he expresses any further chest pain or any increased shortness of breath. - Verified with [facility]. Apparently patient is taking her 130 mg of methadone in the morning. We will continue the methadone for now. - Patient will be discharged when cleared by cardiology - We'll also inform the [facility] that he's getting today's does of methadone in the hospital. - Patient will be discharged when cleared by cardiology. Patient to follow with primary care doctor when done with the rehab program so that stress test can be arranged patient agreeable to it Time with Patient: Greater than 30
--- NOTE | 2019-06-06 11:13 | ECHOF ---
Referral Reason:acute chest pain, acute syncope MEASUREMENTS -------- HEIGHT: 180.3 cm WEIGHT: 102.5 kg BP: 106/66 RVIDd: 2.8 cm (< 3.3) IVSd: 0.9 cm (0.6 - 1.1) LVIDd: 4.8 cm (3.9 - 5.3) LVPWd: 1.0 cm (0.6 - 1.1) IVSs: 1.5 cm LVIDs: 3.1 cm LVPWs: 1.6 cm LA Diam: 3.2 cm (2.7 - 3.8) LAESV Index (A-L): 24.86 ml/m Ao Diam: 3.2 cm (2.0 - 3.7) AV Cusp: 2.2 cm (1.5 - 2.6) MV EXCURSION: 15.184 mm (> 18.000) MV EF SLOPE: 141 mm/s (70 - 150) EPSS: 0.7 cm MV E Joshua: 0.91 m/s MV DecT: 189 ms MV A Joshua: 0.72 m/s MV E/A Ratio: 1.27 RAP: 5.00 mmHg RVSP: 32.48 mmHg FINDINGS -------- Sinus rhythm. This was a technically good study. The left ventricular size is normal. Left ventricular wall thickness is normal. Overall left vent ricular systolic function is normal with, an EF between 60 - 65 %. The right ventricle is normal in size. Normal LA size by volume 22+/-6 ml/m2. The right atrium is normal in size. Interatrial and interventricular septum intact. The aortic valve is trileaflet and appears structurally normal. Mild mitral regurgitation is present. Mild tricuspid regurgitation present. Right ventricular systolic pressure is normal at < 35 mmHg. Trace/mild (physiologic) pulmonic regurgitation. The aortic root size is normal. IVC Not well visulized. There is no pericardial effusion. CONCLUSIONS -------- 1. Sinus rhythm. 2. This was a technically good study. 3. The left ventricular size is normal. 4. Left ventricular wall thickness is normal. 5. Overall left ventricular systolic function is normal with, an EF between 60 - 65 %. 6. The right ventricle is normal in size. 7. Normal LA size by volume 22+/-6 ml/m2. 8. The right atrium is normal in size. 9. Interatrial and interventricular septum intact. 10. The aortic valve is trileaflet and appears structurally normal. 11. Mild mitral regurgitation is present. 12. Mild tricuspid regurgitation present. 13. Right ventricular systolic pressure is normal at < 35 mmHg. 14. Trace/mild (physiologic) pulmonic regurgitation. 15. The aortic root size is normal. 16. IVC Not well visulized. 17. There is no pericardial effusion. BONUS CLERK: Nery Blandon RDCS
[2019-06-06] MEDS ORDERED: MIRTAZAPINE 15 MG TAB PO SCH (21:00)
[2019-06-06] MEDS ORDERED: QUEtiapine 100 MG TAB PO SCH (21:00)
== END 2019-06-06 01:48 | disposition home or self-care (01) ==
LOC: EC 19:44 → 1SOBS 23:02
PROVIDERS: ADMIT Internal Medicine; ATTEND Internal Medicine
DX: R07.89 Other chest pain (principal); R55 Syncope and collapse; F11.90 Opioid use, unspecified, uncomplicated; F10.10 Alcohol abuse, uncomplicated; R61 Generalized hyperhidrosis; R06.02 Shortness of breath; K59.00 Constipation, unspecified; R60.0 Localized edema; F20.9 Schizophrenia, unspecified; F31.9 Bipolar disorder, unspecified; F17.200 Nicotine dependence, unspecified, uncomplicated; F40.240 Claustrophobia; F41.9 Anxiety disorder, unspecified; Z79.899 Other long term (current) drug therapy; Z88.6 Allergy status to analgesic agent; Z88.5 Allergy status to narcotic agent; Z88.0 Allergy status to penicillin; Z87.19 Personal history of other diseases of the digestive system; Z87.898 Personal history of other specified conditions; Z86.711 Personal history of pulmonary embolism; Z83.3 Family history of diabetes mellitus; Z82.49 Family history of ischemic heart disease and other diseases of the circulatory system
CPT/HCPCS: 99285; 36415; 93005; 93306; 85379; 83880; 80061; 80053; 83735; 84484 ×2; 85025; 85610; 85730; 93970; 71275; G0378 ×2; S0109; Q9967

== ENCOUNTER 2023-01-31 13:20 | Emergency (ER) | payer MEDICARE, OTHER ==
[2023-01-31 13:25] VITALS: TEMP 97.9
[2023-01-31] MEDS ORDERED: SODIUM CHLORIDE 0.9% 1,000 ML IV STA (13:29)
[2023-01-31] MEDS ORDERED: KETOROLAC 15 MG/ML 1 ML VIAL IVP STA (13:30)
--- NOTE | 2023-01-31 13:54 | ED ---
Seizure HPI - General Chief Complaint: Seizure Stated Complaint: Seizure Time Seen by Provider: 01/31/23 13:22 Source: patient, RN notes reviewed Mode of arrival: ambulatory Limitations: no limitations - History of Present Illness Initial Comments: Patient is a 43-year-old male presenting to the emergency room via EMS from [place] with reports of a witnessed seizure by his roommate around 1140 this morning. Staff report indicates that patient was alert and orientated upon their assessment with no evidence of postictal state. Patient reports that he believes that he may have cracked a tooth during seizure however he has multiple cracks/mixing and decaying teeth. He is complaining of a mild headache which is generalized. He denies any drug usage since prior to his hospitalization at [place]. He states that his last usage was in December. He is on methadone. He is on Keppra for known seizure disorder and states that he has not missed any doses of his Keppra. He denies any chest pain, shortness breath, abdominal pain, nausea, vomiting, dizziness, focal neurological deficits, weakness, fevers or chills. In addition to his seizure disorder and polysubstance abuse she has a past medical history significant for bipolar disorder and schizophrenia. - Related Data Home Medications Medication Instructions Recorded Confirmed Acetaminophen [Tylenol] 650 mg PO Q4H PRN 06/05/19 06/05/19 Citalopram Hydrobromide [CeleXA] 20 mg PO DAILY 06/05/19 06/05/19 Docusate [Colace] 100 mg PO BID 06/05/19 06/05/19 Mirtazapine [Remeron] 15 mg PO HS 06/05/19 06/05/19 Multivitamins, Thera [Multivitamin 1 tab PO DAILY 06/05/19 06/05/19 (formulary)] QUEtiapine FUMARATE [SEROquel] 300 mg PO HS 06/05/19 06/05/19 busPIRone HCl [Buspar] 10 mg PO BID 06/05/19 06/05/19 cloNIDine HCL [Catapres] 0.1 - 0.3 mg PO DAILY PRN 06/05/19 06/05/19 Methadone [Dolophine] 130 mg PO DAILY 06/06/19 06/06/19 Allergies Allergy/AdvReac Type Severity Reaction Status Date / Time aspirin Allergy Intermediate Itching Verified 06/05/19 21:02 ibuprofen Allergy Unknown Verified 06/05/19 20:50 ketorolac [From Toradol] Allergy Unknown Verified 06/05/19 20:50 Penicillins Allergy Unknown Verified 06/05/19 20:50 Review of Systems ROS Statement: Those systems with pertinent positive or pertinent negative responses have been documented in the HPI. ROS Other: All systems not noted in ROS Statement are negative. Past Medical History Past Medical History: Seizure Disorder Additional Past Medical History / Comment(s): pancreatitis History of Any Multi-Drug Resistant Organisms: None Reported Past Surgical History: Hernia Repair Past Anesthesia/Blood Transfusion Reactions: No Reported Reaction Past Psychological History: Bipolar, Schizophrenia Past Alcohol Use History: None Reported Past Drug Use History: Cocaine, Heroin, Marijuana, Methamphetamine - Past Family History Mother Family Medical History: Diabetes Mellitus, Myocardial Infarction ([place]) Additional Family Medical History / Comment(s): at age of 66 Father History Unknown: Yes General Exam - General Exam Comments Initial Comments: GENERAL: No acute distress, well developed, well nourished. HEENT: Normocephalic, atraumatic. Pupils equal, round, reactive to light. Moist mucous membranes. Multiple missing, fractured and decaying teeth. LUNGS: No respiratory distress. Clear to auscultation, no adventitious sounds, no use of accessory muscles. HEART: Regular rate and rhythm without murmur, rub, or gallop. ABDOMEN: Normal bowel sounds. Soft, non-tender, non-distended. BACK: Normal inspection. EXTREMITIES: No edema. No tenderness. Moves all extremities. NEUROLOGIC: Alert & oriented x 3. CN II-XII grossly intact. PSYCHIATRIC: Normal affect and behavior. DERMATOLOGIC: Skin intact, without rashes or lesions noted. Limitations: no limitations Course Vital Signs 01/31/23 01/31/23 01/31/23 13:22 14:45 15:58 Temperature 97.9 F Pulse Rate 68 54 L 81 Respiratory 18 16 14 Rate Blood Pressure 129/90 109/70 99/73 O2 Sat by Pulse 96 99 99 Oximetry Medical Decision Making - Medical Decision Making Was pt. sent in by a medical professional or institution (, PA, PLATFORM BUILDER, urgent care, hospital, or fci...) When possible be specific @ -No Did you speak to anyone other than the patient for history (EMS, parent, family, police, friend...)? What history was obtained from this source @ -No Did you review nursing and triage notes (agree or disagree)? Why? @ -I reviewed and agree with nursing and triage notes Were old charts reviewed (outside hosp., previous admission, EMS record, old EKG, old radiological studies, urgent care reports/EKG's, fci records)? Report findings @ -No old charts were reviewed Differential Diagnosis (chest pain, altered mental status, abdominal pain women, abdominal pain men, vaginal bleeding, weakness, fever, dyspnea, syncope, headache, dizziness, GI bleed, back pain, seizure, CVA, palpatations, mental health, musculoskeletal)? @ -Differential Seizure: Recurrent seizure disorder, febrile seizure, alcohol withdrawal, stimulants, meningitis, encephalitis, intercranial hemorrhage, intracranial tumor, stroke, eclampsia, thyrotoxicosis, hypocalcemia, hyponatremia, hypernatremia, hypomagnesemia, psychogenic, this is not meant to be an all-inclusive list. EKG interpreted by me (3pts min.). @ -Completed at 1331; sinus rhythm, ventricular rate 60 B beats per minute, PA interval 145 ms QRS duration 102 ms, QT/QTC 451/457 ms, PRT axes 63, 59, 57 X-rays interpreted by me (1pt min.). @ -None done CT interpreted by me (1pt min.). @ -None done U/S interpreted by me (1pt. min.). @ -None done What testing was considered but not performed or refused? (CT, X-rays, U/S, labs)? Why? @ -Computed tomography scan of the head considered but deferred due to known seizure disorder without any head trauma. What meds were considered but not given or refused? Why? @ -None Did you discuss the management of the patient with other professionals (professionals i.e. ., PA, PLATFORM BUILDER, lab, RT, psych nurse, psychiatric social worker, private secretary, teacher, environmental health officer, patient case manager)? Give summary @ -No Was smoking cessation discussed for >3mins.? @ -No Was critical care preformed (if so, how long)? @ -No Were there social determinants of health that impacted care today? How? (Homelessness, low income, unemployed, alcoholism, drug addiction, transportation, low edu. Level, literacy, decrease access to med. care, snf, rehab)? @ -Polysubstance abuse Was there de-escalation of care discussed even if they declined (Discuss DNR or withdrawal of care, Hospice)? DNR status @ -No What co-morbidities impacted this encounter? (DM, HTN, Smoking, COPD, CAD, Cancer, CVA, ARF, Chemo, Hep., AIDS, mental health diagnosis, sleep apnea, morbid obesity)? @ -Seizure history Was patient admitted / discharged? Hospital course, mention meds given and route, prescriptions, significant lab abnormalities, going to OR and other pertinent info. @ -43-year-old male presenting to the emergency room via EMS from [place] after witnessed seizure which occurred around 1140 this morning. Staff report indicates orientated upon evaluation by them. No evidence of pos tictal state. No indication for diagnostic imaging setting of known seizure history will obtain laboratory studies of CBC, CMP, magnesium, urine drug screen along with EKG and Keppra level. Complaining of mild headache will give Toradol for headache in the setting of polysubstance abuse will avoid opiates. Headache improved with Tylenol. No further seizure activity. CBC unremarkable, CMP with glucose low at 71, dextrose given magnesium normal electrolytes renal function and liver function all normal. Keppra level pending colonoscopy available for 24 hours. No indication to hold patient while awaiting results. Advise continued dose of Keppra 750 mg twice a day. Discussed return parameters to the emergency room. Advised follow-up with primary care/neurology for possible adjustment in his medications if further seizure activity. Encouraged continued abstaining from polysubstance abuse and alcohol as it can worsen his seizure condition. Questions and concerns answered. Will discharge in stable condition for return to [place] for substance abuse treatment on continued Keppra for seizure disorder. Undiagnosed new problem with uncertain prognosis? @ -No Drug Therapy requiring intensive monitoring for toxicity (Heparin, Nitro, Insulin, Cardizem)? @ -No Were any procedures done? @ -No Diagnosis/symptom? @ -Seizure Acute, or Chronic, or Acute on Chronic? @ -Acute on chronic Uncomplicated (without systemic symptoms) or Complicated (systemic symptoms)? @ -Uncomplicated Side effects of treatment? @ -No Exacerbation, Progression, or Severe Exacerbation? @ -No Poses a threat to life or bodily function? How? (Chest pain, [place], [place], pneumonia, PE, COPD, DKA, ARF, appy, cholecystitis, CVA, Diverticulitis, Homicidal, Suicidal, threat to staff... and all critical care pts) @ -No Case discussed with Dr. Camara - Lab Data Result diagrams: 01/31/23 14:01 01/31/23 14:01 Lab Results 01/31/23 01/31/23 01/31/23 Range/Units 14:00 14:01 14:01 WBC 5.4 (3.8-10.6) k/uL RBC 4.43 (4.30-5.90) m/uL Hgb 14.2 (13.0-17.5) gm/dL Hct 42.0 (39.0-53.0) % MCV 94.6 (80.0-100.0) fL MCH 32.1 (25.0-35.0) pg MCHC 33.9 (31.0-37.0) g/dL RDW 12.8 (11.5-15.5) % Plt Count 215 (150-450) k/uL MPV 7.4 Neutrophils % 58 % Lymphocytes % 30 % Monocytes % 5 % Eosinophils % 6 % Basophils % 1 % Neutrophils # 3.1 (1.3-7.7) k/uL Lymphocytes # 1.6 (1.0-4.8) k/uL Monocytes # 0.2 (0-1.0) k/uL Eosinophils # 0.3 (0-0.7) k/uL Basophils # 0.1 (0-0.2) k/uL Sodium 139 (137-145) mmol/L Potassium 4.4 (3.5-5.1) mmol/L Chloride 107 (98-107) mmol/L Carbon Dioxide 23 (22-30) mmol/L Anion Gap 9 mmol/L BUN 15 (9-20) mg/dL Creatinine 0.84 (0.66-1.25) mg/dL Est GFR (CKD-EPI)AfAm >90 (>60 ml/min/1.73 sqM) Est GFR (CKD-EPI)NonAf >90 (>60 ml/min/1.73 sqM) Glucose 71 L (74-99) mg/dL POC Glucose (mg/dL) 102 (70-110) mg/dL POC Glu Putter In ID Aric Stark Calcium 8.7 (8.4-10.2) mg/dL Magnesium 2.1 (1.6-2.3) mg/dL Total Bilirubin 0.6 (0.2-1.3) mg/dL AST 32 (17-59) U/L ALT 38 (4-49) U/L Alkaline Phosphatase 79 (38-126) U/L Total Protein 7.2 (6.3-8.2) g/dL Albumin 4.3 (3.5-5.0) g/dL Disposition Clinical Impression: Epileptic seizure, generalized Disposition: HOME SELF-CARE Condition: Stable Instructions (If sedation given, give patient instructions): Seizure/Epilepsy Discharge Instructions & Follow-Up Additional Instructions: Her continue your Keppra regimen as currently prescribed. Continue your rehabilitation treatment avoiding illicit substances and alcohol. His follow-up with your primary care provider and/or neurologist. Please return to the [facility] if symptoms worsen or any other concerns. Is patient prescribed a controlled substance at d/c from ED?: No Referrals: Nonstaff,Physician [Primary Care Provider] - 1-2 days Time of Disposition: 16:31
[2023-01-31 14:05] LABS: Glucose,Whole Blood 102 mg/dL (70-110)
[2023-01-31 14:13] LABS: Basophils # (A) 0.1 k/uL (0-0.2); Basophils % (A) 1 %; Eosinophils # (A) 0.3 k/uL (0-0.7); Eosinophils % (A) 6 %; HGB 14.2 gm/dL (13.0-17.5); Lymphocytes # (A) 1.6 k/uL (1.0-4.8); Lymphocytes % (A) 30 %; MCH 32.1 pg (25.0-35.0); MCHC 33.9 g/dL (31.0-37.0); MCV 94.6 fL (80.0-100.0); Mean Platelet Volume 7.4; Monocytes # (A) 0.2 k/uL (0-1.0); Monocytes % (A) 5 %; Neutrophils # (A) 3.1 k/uL (1.3-7.7); Neutrophils % (A) 58 %; Platelet Count 215 k/uL (150-450); RBC 4.43 m/uL (4.30-5.90); RDW 12.8 % (11.5-15.5); WBC 5.4 k/uL (3.8-10.6)
[2023-01-31 14:36] LABS: ALT 38 U/L (4-49); AST 32 U/L (17-59); African American GFR (CKD) >90 (>60 ml/min/1.73 sqM); Albumin 4.3 g/dL (3.5-5.0); Alkaline Phosphatase 79 U/L (38-126); Anion Gap 9 mmol/L; Blood Urea Nitrogen 15 mg/dL (9-20); Calcium 8.7 mg/dL (8.4-10.2); Carbon Dioxide 23 mmol/L (22-30); Chloride 107 mmol/L (98-107); Glucose 71 mg/dL (74-99); Magnesium 2.1 mg/dL (1.6-2.3); Non-African American GFR(CKD) >90 (>60 ml/min/1.73 sqM); Potassium 4.4 mmol/L (3.5-5.1); Sodium 139 mmol/L (137-145); Total Bilirubin 0.6 mg/dL (0.2-1.3); Total Protein 7.2 g/dL (6.3-8.2)
[2023-01-31] MEDS ORDERED: DEXTROSE 50% SYRINGE 50 ML IVP STA (15:04)
[2023-01-31 15:59] VITALS: BP 99/73; PULSE 81; RESP 14
[2023-01-31 16:46] LABS: Amphetamine Screen,Urine Not Detected (NotDetected); Barbiturate Screen,Urine Not Detected (NotDetected); Benzodiazepines Screen,Urine Not Detected (NotDetected); Cocaine Screen,Urine Not Detected (NotDetected); Methadone Screen, Urine Detected (NotDetected); Opiate Screen,Urine Not Detected (NotDetected); Oxycodone Screen, Urine Not Detected (NotDetected); Phencyclidine Screen,Urine Not Detected (NotDetected); Tricyclic Antidepressant,Urine Not Detected (NotDetected); Urn Cannabinoid Scrn Not Detected (NotDetected)
== END 2023-01-31 17:41 | disposition home or self-care (01) ==
LOC: EC 13:20
DX: G40.409 Other generalized epilepsy and epileptic syndromes, not intractable, without status epilepticus (principal); F31.9 Bipolar disorder, unspecified; F20.9 Schizophrenia, unspecified; F12.90 Cannabis use, unspecified, uncomplicated; F11.90 Opioid use, unspecified, uncomplicated; F14.90 Cocaine use, unspecified, uncomplicated; F15.90 Other stimulant use, unspecified, uncomplicated; Z88.0 Allergy status to penicillin; Z88.6 Allergy status to analgesic agent; Z79.899 Other long term (current) drug therapy
CPT/HCPCS: 36415; 93005; 80053; 80177; 83735; 85025; 80306; 99285; 96374; 96375; 96361; J1885